=== PATIENT | female | born 1990 | race African-American/Black ===

== ENCOUNTER 2017-05-25 11:08 | Emergency (ER) | payer OTHER ==
[~2017-05-25] VITALS: Ht 149.9 cm; Wt 49.9 kg
[~2017-05-25 11:08] MED LIST: APAP500 PO; COLACE 100 MG100 MG PO; DERMOPLAST SPRA56 ML TOP; HYDROCORTISONE30 G9 TOP; IBUPROFEN 800800 M1 PO; IROSPAN 24/6 T1 EACH PO; LANOLIN56 GM TOP; TRINATE TABLET1 TAB PO; TUCKS MEDICATE1 EAC1 TOP
[2017-05-25 11:12] VITALS: BP 102/75
[2017-05-25] MEDS ORDERED: IBUPROFEN 600600 M1 PO (12:15)
[2017-05-25] MEDS ORDERED: ULTRAM 50MG TAB50 MG PO (12:17)
== END 2017-05-25 12:48 | disposition home or self-care (01) ==
LOC: ER 11:08
DX: M25.512 Pain in left shoulder (principal); N94.89 Other specified conditions associated with female genital organs and menstrual cycle; F17.210 Nicotine dependence, cigarettes, uncomplicated; Z86.2 Personal history of diseases of the blood and blood-forming organs and certain disorders involving the immune mechanism; Z87.442 Personal history of urinary calculi; Z88.6 Allergy status to analgesic agent; Y04.0XXA Assault by unarmed brawl or fight, initial encounter; Y93.89 Activity, other specified; Y92.89 Other specified places as the place of occurrence of the external cause; Y99.8 Other external cause status